=== PATIENT | female | born 1950 | race Caucasian/White ===

== ENCOUNTER 2017-07-18 10:20 | Day surgery (SDC) | payer MEDICARE ==
[2017-07-18] VITALS (14 sets, daily range): BP systolic 108–166; BP diastolic 69–85
[~2017-07-18] VITALS: Ht 157.5 cm; Wt 90.6 kg
[~2017-07-18 10:20] MED LIST: ALBU18HF2 INH; ATOR40TA71 PO; DULO-31 PO; LOSA50TA3 PO; MONT10TA24 PO; MULT-38 PO; OMEP40CA37 PO; SERT50TA PO; SUCR1TAB PO; cefazolin/dext.iso 2gm/50ml 50 ML IV ONE; famotidine 20mg tablet PO ONE; ringers solution, lacted 1,000 ML IV SCH
[2017-07-18 11:14] LABS: CLARITY,URINE SLIGHTLY CLOUDY (Clear); COLOR,URINE STRAW (Yellow); GLUCOSE, URINE NEGATIVE (Neg); KETONES,URINE NEGATIVE (Neg); LEUKOCYTE ESTERASE ,URINE NEGATIVE (Neg); NITRITES, URINE NEGATIVE (Neg); OCCULT BLOOD,URINE NEGATIVE (Neg); PH,URINE 7.5 (4.8-8.0); PROTEIN,URINE NEGATIVE (Neg)
[2017-07-18 11:14] LABS: BASOPHILS # (AUTO) 0.1 X10'3 (0-0.2); BASOPHILS % (AUTO) 0.5 % (0-1); EOSINOPHILS # (AUTO) 0.2 X10'3 (0-0.9); EOSINOPHILS % (AUTO) 1.8 % (0-6); HEMATOCRIT 35.9 % (35.0-45.0); HEMOGLOBIN 12.3 g/dl (12.0-16.0); LYMPHOCYTES % (AUTO) 19.1 % (21-51); MEAN CORPUSCULAR HEMOGLOBIN 27.2 PG (27.0-31.0); MEAN CORPUSCULAR HGB CONC 34.2 % (33.0-36.5); MEAN CORPUSCULAR VOLUME 79.4 FL (78-98); MEAN PLATELET VOLUME 7.8 FL (7.4-10.4); MONOCYTES # (AUTO) 0.8 X10'3 (0-0.9); MONOCYTES % (AUTO) 7.8 % (2-12); NEUTROPHILS # (AUTO) 7.3 X10'3 (1.8-7.7); NEUTROPHILS % (AUTO) 70.8 % (42-75); PLATELET COUNT 257 X10'3 (140-440); RED BLOOD COUNT 4.53 X10'6 (4.20-5.60); RED CELL DISTRIBUTION WIDTH 16.1 % (11.5-14.5); WHITE BLOOD COUNT 10.4 X10'3 (4.5-11.0)
[2017-07-18 11:15] LABS: UA COLLECTION TYPE CLN CATCH MIDSTREAM
[2017-07-18 11:26] LABS: BACTERIA,URINE 1+ /HPF (Neg); SQUAMOUS EPITHELIAL CELL,UR MODERATE /LPF (FEW)
[2017-07-18 11:27] LABS: AMORPHOUS PHOSPHATES 1+; RBC,URINE 0-2 /HPF (0-2); WBC,URINE 0-4 /HPF (0-4)
[2017-07-18 11:27] LABS: ALANINE AMINOTRANSFERASE 28 U/L (12-78); ALBUMIN 3.7 G/DL (3.4-5.0); ALBUMIN/GLOBULIN RATIO 0.9 (1.1-1.5); ALKALINE PHOSPHATASE 121 IU/L (46-116); ANION GAP 10 (8-16); ASPARTATE AMINO TRANSFERASE 19 U/L (10-37); BILIRUBIN,TOTAL 0.4 MG/DL (0.1-1.0); BLOOD UREA NITROGEN 17 MG/DL (7-18); BUN/CREATININE RATIO 15.9 (6.6-38.0); CALCIUM 9.5 MG/DL (8.5-10.1); CHLORIDE 106 MMOL/L (99-107); CREATININE 1.07 MG/DL (0.40-0.90); GLUCOSE 113 MG/DL (70-104); SODIUM 142 MMOL/L (135-145); TOTAL CARBON DIOXIDE 26.2 MMOL/L (24-32); TOTAL PROTEIN 7.7 G/DL (6.4-8.2); eGFR 51 ML/MIN
[2017-07-18] MEDS ORDERED: LIDOcaine 1% (10mg/ml) 2ml vial ONE (11:31)
[2017-07-18] MEDS ORDERED: BUPIVAcaine/PF 2.5 mg/ml (0.25%) 30ml vial ONE (11:37)
[2017-07-18] MEDS ORDERED: midazolam 2 mg/2 ml injection ONE (11:51)
[2017-07-18] MEDS ORDERED: fentaNYL/PF 50MCG/1 ML 2ML syringe ONE ×2 (11:51→13:01)
[2017-07-18] MEDS ORDERED: LIDOcaine 2% (20mg/ml) 5ml vial ONE (11:53)
[2017-07-18] MEDS ORDERED: propofol inj 20 ML IV ONE (11:53)
[2017-07-18] MEDS ORDERED: rocuronium 10mg/ml inj IV ONE (11:53)
[2017-07-18] MEDS ORDERED: dexamethasone sod phosphate 4mg/ml inj. ONE (12:31)
[2017-07-18] MEDS ORDERED: sevoflurane 250ml liquid IH ONE (12:31)
[2017-07-18] MEDS ORDERED: glycopyrrolate 0.2mg/ml inj ONE (13:01)
[2017-07-18] MEDS ORDERED: neostigmine methylsulfate 1 MG/ML 10ml vial ONE (13:01)
[2017-07-18] MEDS ORDERED: ondansetron/PF 4mg/2ml inj ONE (13:02)
[2017-07-18] MEDS ORDERED: ringers solution, lacted 1,000 ML IV SCH (13:14)
[2017-07-18] MEDS ORDERED: HYDROmorphone 1 mg/ml syringe IV PRN ×2 (13:15)
[2017-07-18] MEDS ORDERED: meperidine/PF 25mg/ml syringe IV PRN ×2 (13:15)
[2017-07-18] MEDS ORDERED: ondansetron/PF 4mg/2ml inj IV PRN (13:15)
[2017-07-18] MEDS ORDERED: HYDROmorphone inj. 0.5 MG/0.5 ML DISP.SYRIN ONE (14:46)
== END 2017-07-18 15:53 | disposition home or self-care (01) ==
LOC: PAS 10:20
PROVIDERS: ATTEND Surgery
DX: K66.0 Peritoneal adhesions (postprocedural) (postinfection) (principal); E78.5 Hyperlipidemia, unspecified; F41.9 Anxiety disorder, unspecified; F32.9 Major depressive disorder, single episode, unspecified; I10 Essential (primary) hypertension; J45.909 Unspecified asthma, uncomplicated; K21.9 Gastro-esophageal reflux disease without esophagitis; I25.10 Atherosclerotic heart disease of native coronary artery without angina pectoris; M19.90 Unspecified osteoarthritis, unspecified site; E66.3 Overweight; Z95.1 Presence of aortocoronary bypass graft; Z90.49 Acquired absence of other specified parts of digestive tract; Z98.51 Tubal ligation status; Z79.899 Other long term (current) drug therapy; Z88.8 Allergy status to other drugs, medicaments and biological substances; Z88.1 Allergy status to other antibiotic agents; Z88.6 Allergy status to analgesic agent; Z98.890 Other specified postprocedural states; Z68.36 Body mass index [BMI] 36.0-36.9, adult
CPT/HCPCS: 36415; 49329; 80053; 81001; 85025; 93005; C1758; J0690; J1100; J1170; J2001; J2175; J2250; J2405; J2704; J2710; J3010; J3490; J7120; A7000